=== PATIENT | male | born 1955 | race Caucasian/White ===

== ENCOUNTER 2018-04-15 15:33 | Emergency (ER) | payer OTHER ==
--- NOTE | 2018-04-15 16:21 | ED ---
Dizziness - HPI Summary HPI Summary: Patient is a 62 y/o M presenting to ED with complaints of "room-spinning" dizziness onsetting two days ago. He was sent from [place]. He denies PAUL, tingling, weakness, numbness, changes in speech. Patient notes dizziness is intermittent and worse with movement and in particular with rolling to the left while lying down. No PMHx of vertigo, but FMHx is reported. Patient reports one episode of similar Sx last year. Fever, chills, erythema of eyes, sore throat, chest pain, SOB, cough, abdominal pain, N/V, dysuria, hematuria, myalgia, edema, rash are not reported. On triage , pain is rated 0/10, nothing is noted to aggravate/alleviate Sx. Home medications and allergies are reviewed. - History Of Current Complaint Chief Complaint: EDDizziness Stated Complaint: DIZZINESS Hx Obtained From: Patient Onset/Duration: Still Present Timing: Intermittent Episode Lasting Severity Currently: None - 0/10 pain on triage Character: Room Spinning, Dizzy Aggravating Factor(s): Other - movement Alleviating Factor(s): Nothing Associated Signs And Symptoms: Positive: Other: - no weakness, numbness, tingling, slurred speech, PAUL, Fever, chills, erythema of eyes, sore throat, chest pain, SOB, cough, abdominal pain, N/V, dysuria, hematuria, myalgia, edema , rash. Negative: Slurred Speech - Allergies/Home Medications Allergies/Adverse Reactions: Allergies Allergy/AdvReac Type Severity Reaction Status Date / Time ANTI INFLAMATORIES Allergy FACE Uncoded 10/26/14 10:36 SWELLS, RASH PMH/Surg Hx/FS Hx/Imm Hx Cardiovascular History: Denies: Other Cardiovascular Problems/Disorders Respiratory History: Denies: Other Respiratory Problems/Disorders GI History: Reports: Hx Hiatal Hernia Musculoskeletal History: Denies: Other Musculoskeletal History Sensory History: Denies: Hx Contacts or Glasses, Hx Hearing Aid Opthamlomology History: Denies: Hx Contacts or Glasses Neurological History: Denies: Other Neuro Impairments/Disorders - Cancer History Hx Chemotherapy: Yes - Surgical History Surgery Procedure, Year, and Place: APPENDECTOMY. TONSILECTOMY. RIGHT KNEE. RIGHT CARPAL TUNNEL RELEASE. SPINAL FUSION, 2004 Hx Anesthesia Reactions: No Infectious Disease History: No Infectious Disease History: Denies: Traveled Outside the [place] in Last 30 Days - Family History Known Family History: Positive: Other - FMHx of vertigo - Social History Alcohol Use: Weekly Alcohol Amount: SOCIAL Substance Use Type: Reports: None Smoking Status (MU): Former Smoker Amount Used/How Often: PACK A DAY Have You Smoked in the Last Year: No Review of Systems Negative: Fever, Chills Negative: Erythema Negative: Sore Throat Negative: Chest Pain Negative: Shortness Of Breath, Cough Negative: Abdominal Pain, Vomiting, Nausea Negative: dysuria, hematuria Negative: Myalgia, Edema Negative: Rash Neurological: Other - POSITIVE - DIZZINESS; NEGATIVE - TINGLING Negative: Headache, Weakness, Numbness, Slurred Speech All Other Systems Reviewed And Are Negative: Yes Physical Exam - Summary Physical Exam Summary: Constitutional: Well-developed, Well-nourished, Alert. (-) Distressed Skin: Warm, Dry HENT: Normocephalic; Atraumatic Eyes: Conjunctiva normal Neck: Musculoskeletal ROM normal neck. (-) JVD, (-) Stridor, (-) Tracheal deviation Cardio: Rhythm regular, rate normal, Heart sounds normal; Intact distal pulses; The pedal pulses are 2+ and symmetric. Radial pulses are 2+ and symmetric. (-) Murmur Pulmonary/Chest wall: Effort normal. (-) Respiratory distress, (-) Wheezes, (-) Rales Abd: Soft, (-) epigastric tenderness, (-) Distension, (-) Guarding, (-) Rebound Musculoskeletal: (-) Edema Lymph: (-) Cervical adenopathy Neuro: Alert, Oriented x3; Dizziness reproduced with aicha-hallpike maneuver to the left. Psych: Mood and affect Normal Triage Information Reviewed: Yes Vital Signs On Initial Exam: Initial Vitals Temp Pulse Resp BP Pulse Ox 97.5 F 56 15 150/82 100 04/15/18 15:35 04/15/18 15:35 04/15/18 15:35 04/15/18 15:35 04/15/18 15:35 Vital Signs Reviewed: Yes Diagnostics - Vital Signs Vital Signs Temp Pulse Resp BP Pulse Ox 04/15/18 15:35 97.5 F 56 15 150/82 100 - Laboratory Lab Statement: Any lab studies that have been ordered have been reviewed, and results considered in the medical decision making process. - EKG 1637 Cardiac Rate: Bradycardia - rate of 59 BPM EKG Rhythm: Sinus Bradycardia Summary of EKG Findings: EKG showed sinus bradycardia with rate of 59 BPM, no STEMI. Re-Evaluation - Re-Evaluation First Eval Re-Evaluation Time: 18:58 Comment: Patient was ambulated in the ED department, he had a steady gait. He will be discharged to home, he is agreeable with this. Dizzy Course/Dx - Course Course Of Treatment: Patient is a 62 y/o M presenting to ED with complaints of "room-spinning" dizziness onsetting two days ago. He was sent from [place]. He denies PAUL, tingling, weakness, numbness, changes in speech. Patient notes dizziness is intermittent and worse with movement and in particular with rolling to the left while lying down. No PMHx of vertigo, but FMHx is reported. Patient reports one episode of similar Sx last year. On physical exam, dizziness reproduced with aicha-hallpike maneuver to the left. EKG showed sinus bradycardia with rate of 59 BPM, no STEMI. During ED course, patient received Antivert Tab 25 mg PO ED ONCE ONE. Patient was ambulated in the ED department, he had a steady gait. He will be discharged to home, he is agreeable with this. - Diagnoses Provider Diagnoses: Benign positional vertigo Discharge - Sign-Out/Discharge Documenting (check all that apply): Patient Departure - discharge - Discharge Plan Condition: Stable Disposition: HOME Prescriptions: Meclizine TAB* [Antivert 12.5 TAB*] 25 mg PO Q8H PRN #12 tab PRN Reason: Vertigo Meclizine TAB* [Antivert 12.5 TAB*] 25 mg PO Q8H PRN #12 tab PRN Reason: Vertigo Patient Education Materials: Benign Paroxysmal Positional Vertigo (ED) Referrals: Josey Medrano [Primary Care Provider] - 2 Days Additional Instructions: RETURN TO THE EMERGENCY DEPARTMENT FOR CHANGING OR WORSENING SYMPTOMS. FOLLOW UP WITH PRIMARY CARE PHYSICIAN IN 2 DAYS. DO NOT OPERATE VEHICLE OR MACHINERY WHILE ON MEDICATIONS. PERFORM LUCY MANEUVER SEVERAL TIMES DURING THE DAY. - Attestation Statements Document Initiated by Scribe: Yes Documenting Scribe: NEDA HERRON Provider For Whom Scribe is Documenting (Include Credential): ROCHELLE CANNON MD Scribe Attestation: I, NEDA HERRON, scribed for ROCHELLE CANNON MD on 04/15/18 at 1904. Status of Scribe Document: Ready
[2018-04-15] MEDS ORDERED: Meclizine TAB* 12.5 MG PO ONE (16:30)
[2018-04-15 19:46] VITALS: BP 149/96
== END 2018-04-15 19:46 | disposition home or self-care (01) ==
LOC: ED 15:33
DX: H81.10 Benign paroxysmal vertigo, unspecified ear (principal); R50.9 Fever, unspecified; Z87.891 Personal history of nicotine dependence
CPT/HCPCS: 93005; 99284; A9270-GY